=== PATIENT | male | born 1945 | race Caucasian/White ===

== ENCOUNTER → 2025-06-20 12:17 | Outpatient (REF) | payer MEDICARE, OTHER, SELFPAY ==
[2025-06-20 12:57] LABS: Hematocrit 41.6 % (39.0-52.0); Hemoglobin 14.3 g/dL (13.0-18.0); Mean Corp Hgb Conc. 34.4 g/dL (33.0-37.0); Mean Corpuscular Volume 94.5 fL (80.0-94.0); Nucleated Red Blood Cells % 0 % (-); Platelet Count 261 10^3/uL (130-400); Red Cell Dist. Width 12.6 % (11.5-14.5)
[2025-06-20 13:35] LABS: ALT (SGPT) 15 U/L (0-50); AST (SGOT) 17 U/L (17-59); Albumin 4.3 g/dl (3.5-5.0); Alkaline Phosphatase 90 U/L (38-126); Blood Urea Nitrogen 26 mg/dl (9-20); Calcium 9.9 mg/dl (8.4-10.2); Carbon Dioxide 24 mmol/L (22-30); Chloride 103 mmol/L (98-107); Glucose 135 mg/dl (70-99); Potassium 4.5 mmol/L (3.5-5.1); Sodium 133 mmol/L (135-145); Total Protein 6.9 g/dl (6.3-8.2); eGFR 55.53
== END ==
LOC: SDSPAT 12:17
PROVIDERS: ATTENDING PHYSICIAN Internal Medicine Cardiovascular Disease; FAMILY PHYSICIAN Internal Medicine; OTHER PHYSICIAN Family Medicine; OTHER PHYSICIAN Internal Medicine Cardiovascular Disease
DX: R06.09 Other forms of dyspnea (principal)
CPT/HCPCS: 36415; 80053; 85025; 93005

== ENCOUNTER 2025-06-26 06:13 | Day surgery (SDC) | payer MEDICARE, OTHER, SELFPAY ==
[2025-06-26] VITALS (14 sets, daily range): BP systolic 110–176; BP diastolic 59–115; BMI 35.6
--- NOTE | 2025-06-26 09:30 | ITS.CL.CATH ---
[facility] - Catheterization
Cardiac Catheterization
Procedure Report:
CARDIAC CATHETERIZATION REPORT
Date of Procedure: 06/26/2025
Referring: Olegario Agosto D.O.
INDICATION: Abnormal preoperative stress test.
PROCEDURE:
1. Left heart catheterization.
2. Coronary angiography.
3. Successful IFR of the ostial LAD.
4. Successful IFR of the ostial circumflex.
5. Successful IFR of the ostial RCA.
A total of 60 minutes of procedural/moderate sedation was utilized. An independent medical supply technician was present to assist with and help manage the patient's level of consciousness and physiologic status.
ACCESS:
1. 6 Q[place]ari right radial artery using a modified Seldinger technique.
CATHETERS:
1. 5 Q[place]ari JR4.
2. 5 Q[place]ari JL 3.5.
3. 6 [place] JR4 guiding catheter.
HEMODYNAMIC DATA
Weight (kg): 122.0
AO (s/d/x, mmHg): 136/66/91
LV (s/x mmHg): 137/21
AV gradient (x, mmHg): None.
LEFT VENTRICULOGRAPHY: Normal.
CORONARY ANGIOGRAPHY
Dominance: Right.
Left Main: Normal size, bifurcating vessel. There is no coronary artery disease.
LAD: Normal size vessel giving rise to 1 large first diagonal followed by several small diagonals. There is an ill-defined, 40-50% lesion in the ostium of the LAD.
Ramus: Congenitally absent.
Circumflex: Normal size, nondominant vessel giving rise to 1 obtuse marginal which subsequently bifurcates into a medial and lateral branch. There is a 50% lesion in the ostium of the circumflex followed by luminal irregularities in the body
of OM1 before its bifurcation.
RCA: Normal size, dominant vessel. There is a 50% lesion in the ostium of the right coronary artery with intermittent dampening.
INTERVENTION(S)
1. Successful IFR of the 40-50% ostial LAD lesion, demonstrating nonocclusive disease (IFR = 0.92).
2. Successful IFR of the 50% ostial circumflex lesion, demonstrating nonocclusive disease (IFR = 0.93).
3. Successful IFR of the 50% ostial RCA lesion, demonstrating nonocclusive disease (IFR = 1.0).
Narrative:
The decision was made to perform physiologic testing. Additional heparin was given to obtain an ACT greater than 250 seconds. An iFR wire was zeroed outside of the body, then inserted into the catheter. The wire was advanced and the transducer was
normalized just outside of the guiding catheter tip. The wire was advanced into the proximal LAD. Three iFR measurements were taken. The lesion was determined to be nonocclusive (0.92).
We then turned our attention to the left circumflex. The wire was pulled back from the LAD and redirected into the circumflex after renormalizing in the left main coronary artery. 3 iFR measurements were taken with a mean iFR ratio of 1.0. On
pullback, the Omni wire had demonstrated significant drift with a baseline PD PA of 1.06. The wire was renormalized and readvanced into the proximal circumflex, beyond the ostial lesion. 3 iFR measurements were retaken, demonstrating nonocclusive
disease (0.93).
The decision was made to perform physiologic testing on the RCA. The diagnostic catheter was removed over a wire and exchanged for a(n) 6 Qatari JR4 guiding catheter. The guiding catheter was advanced into the ascending aorta and seated in the
right coronary artery. Additional heparin was given to obtain an ACT greater than 250 seconds. An iFR wire was zeroed outside of the body, then inserted into the guiding sheath. The wire was advanced and the transducer was normalized just outside
of the guiding catheter tip. The wire was advanced into the proximal RCA. Three iFR measurements were taken. The lesion was determined to be nonocclusive (1.0).
Closure Device: Vascular band.
Radiation (mGy): 1092.07
DAP (cm2.Gy): 67.9189
Fluoroscopy time (minutes): 10.8
CONCLUSIONS
1. Right dominant circulation with a nonocclusive 50% lesion in the ostium of the right artery (IFR = 1.0), a nonocclusive 40-50% lesion in the ostium of the LAD (iFR = 0.92) and a nonocclusive 50% lesion in the ostium of the left circumflex (iFR =
0.93) with luminal irregularities in the body of OM1.
2. Moderately elevated filling pressures (LVEDP = 21 mmHg at 122.0 kg).
3. 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
RECOMMENDATIONS:
1. Expectant management after cardiac catheterization via right radial approach.
2. Limited weight bearing on the right wrist for one week.
3. OMT/GDMT as hemodynamics will tolerate.
4. Aggressive primary prevention with aspirin 81 mg daily.
5. Continue high-dose, high potent statin, goal LDL <55.
6. Start furosemide 40 mg daily for moderately elevated filling pressures with some dyspnea. BMP in 1 week to monitor renal function and potassium.
7. No further cardiovascular intervention indicated prior to upcoming knee surgery.
Copy to: Olegario Agosto D.O., Jose Zaragoza M.D.
Daniel Bower DO, FACC, FACP
== END 2025-06-26 12:40 | disposition home or self-care (01) ==
LOC: CATH 06:13
PROVIDERS: ATTENDING PHYSICIAN Internal Medicine Cardiovascular Disease; FAMILY PHYSICIAN Internal Medicine; OTHER PHYSICIAN Family Medicine; OTHER PHYSICIAN Internal Medicine Cardiovascular Disease
DX: I25.10 Atherosclerotic heart disease of native coronary artery without angina pectoris (principal); I45.10 Unspecified right bundle-branch block; E11.22 Type 2 diabetes mellitus with diabetic chronic kidney disease; E66.9 Obesity, unspecified; E78.5 Hyperlipidemia, unspecified; F43.10 Post-traumatic stress disorder, unspecified; G47.33 Obstructive sleep apnea (adult) (pediatric); I12.9 Hypertensive chronic kidney disease with stage 1 through stage 4 chronic kidney disease, or unspecified chronic kidney disease; I34.0 Nonrheumatic mitral (valve) insufficiency; I49.3 Ventricular premature depolarization; I65.22 Occlusion and stenosis of left carotid artery; M19.90 Unspecified osteoarthritis, unspecified site; I69.90 Unspecified sequelae of unspecified cerebrovascular disease; N18.30 Chronic kidney disease, stage 3 unspecified; Z79.82 Long term (current) use of aspirin; Z79.899 Other long term (current) drug therapy; Z79.84 Long term (current) use of oral hypoglycemic drugs; Z83.3 Family history of diabetes mellitus; Z82.49 Family history of ischemic heart disease and other diseases of the circulatory system
CPT/HCPCS: 93799 ×3; 99152; 99153; 85347; 93458; C1769; C1894; Q9967